=== PATIENT | female | born 1980 | race African-American/Black ===

== ENCOUNTER 2019-07-18 05:23 | Inpatient (IN) ==
[2019-07-18] MEDS ORDERED: Metoclopramide 10 MG/2 ML VIAL IVP PRN ×2 (05:34→13:36)
[2019-07-18] MEDS ORDERED: Naloxone 0.4 MG/ML INJ IVP PRN ×2 (05:34→13:36)
[2019-07-18] MEDS ORDERED: Famotidine 20 MG/2 ML VIAL IVP PRN (05:34)
[2019-07-18] MEDS ORDERED: Ringers Solution, Lactated 1,000 ML IVC SCH (05:45)
[2019-07-18 06:00] LABS: Basophils % 0.4 %; Eosinophils # 0.1 K/mcL (0.0-0.6); Eosinophils % 1.4 %; Hematocrit 35.1 % (35.3-44.9); Hemoglobin 11.2 g/dL (11.5-15.4); Immature Granulocytes % 0.7 % (0-4); Lymphocytes # 2.4 K/mcL (0.6-4.6); Lymphocytes % 32.9 %; Mean Corpuscular HGB Conc 31.9 g/dL (31.6-35.5); Mean Corpuscular Volume 78.3 fL (83.0-100.0); Mean Platelet Volume 10.3 fL (9.4-12.4); Monocytes # 0.8 K/mcL (0.0-1.3); Monocytes % 11.2 %; Neutrophils # 3.8 K/mcL (1.6-8.9); Platelet Count 252 K/mcL (140-400); Red Blood Count 4.48 M/mcL (3.82-4.97); Red Cell Distribution Width 15.6 % (11.5-14.5); Segmented Neutrophils % 53.4 %; White Blood Count 7.2 K/mcL (4.3-11.1)
[2019-07-18 06:21] LABS: Amphetamine Screen,Urine Negative ng/mL (Cutoff=1000); Barbiturate Screen,Urine Negative ng/mL (Cutoff=200)
[2019-07-18 06:22] LABS: Benzodiazepines Screen,Urine Negative ng/mL (Cutoff=300); Cannabinoid Screen,Urine Negative ng/mL (Cutoff = 50); Cocaine Screen,Urine Negative ng/mL (Cutoff= 300); Opiate Screen,Urine Negative ng/mL (Cutoff=300); Phencyclidine Screen,Urine Negative ng/mL (Cutoff=25)
[2019-07-18] MEDS ORDERED: *HR* OxyCODONE/APAP 5/325 TABLET PO PRN (06:32)
[2019-07-18] MEDS ORDERED: Ibuprofen 400 MG TABLET PO PRN (06:32)
[2019-07-18] MEDS ORDERED: Ondansetron 4 MG/2 ML VIAL IVP PRN ×2 (06:32→13:36)
[2019-07-18] MEDS ORDERED: Acetaminophen IV 1,000 MG/100 ML INFUS..BTL IVPB ONE ×2 (06:34→11:27)
[2019-07-18] MEDS ORDERED: CeFAZolin Premix DUPLEX 2,000 MG/50 ML BAG IVPB ONE (06:41)
[2019-07-18] MEDS ORDERED: *HR* Phenylephrine 10 MG/ML VIAL ONE (07:23)
[2019-07-18] MEDS ORDERED: Ringers Solution, Lactated 1,000 ML ONE ×2 (07:23→10:08)
[2019-07-18] MEDS ORDERED: *HR* Morphine Sulfate/PF 10 MG/10 ML AMPUL ONE (07:23)
[2019-07-18] MEDS ORDERED: *HR* Oxytocin 10 UNIT/ML VIAL IM ONE ×2 (07:23→10:09)
[2019-07-18] MEDS ORDERED: Lidocaine -MPF 2% 5 ML VIAL ONE ×2 (07:23→09:22)
[2019-07-18] MEDS ORDERED: *HR* FentaNYL (PF) 100 MCG/2 ML VIAL ONE (07:23)
[2019-07-18] MEDS ORDERED: D5% in Water 1,000 ML IVC PRN (13:36)
[2019-07-18] MEDS ORDERED: Acetaminophen 325 MG TABLET PO PRN (13:36)
[2019-07-18] MEDS ORDERED: *HR* Dextrose 50 % in Water (Syg) 50 ML SYRINGE IVP PRN (13:36)
[2019-07-18] MEDS ORDERED: Dextrose Gel 15 GM/37.5 ML TUBE PO PRN ×2 (13:36)
[2019-07-18] MEDS ORDERED: *HR* OxyCODONE Immed Rel 5 MG TABLET PO PRN (13:36)
[2019-07-18] MEDS ORDERED: Simethicone 80 MG TAB.CHEW PO PRN (13:36)
[2019-07-18] MEDS ORDERED: Sennosides 8.6 MG TABLET PO PRN (13:36)
[2019-07-18] MEDS: Insulin LISPRO 300 UNITS/3 ML VIAL SQ SCH ×4 (17:28→23:15)
[2019-07-18] MEDS: Oxytocin 20 units/ LR 1000 mL 20 UNIT/1,000 ML BAG IVC SCH (17:33)
[2019-07-18] MEDS: Ibuprofen 600 MG TABLET PO PRN (18:38)
[2019-07-18] MEDS: *HR* Metformin 500 MG TABLET PO SCH (20:21)
[2019-07-19] MEDS: Oxytocin 20 units/ LR 1000 mL 20 UNIT/1,000 ML BAG IVC SCH (01:52)
[2019-07-19] MEDS: *HR* Metformin 500 MG TABLET PO SCH ×2 (08:36→20:15)
[2019-07-19] MEDS: *HR* OxyCODONE/APAP 5/325 TABLET PO PRN ×4 (08:36→22:09)
[2019-07-19] MEDS: Insulin LISPRO 300 UNITS/3 ML VIAL SQ SCH ×3 (08:48→14:52)
[2019-07-19] MEDS: Prenatal Vit/FA 1 EACH TABLET PO SCH (08:48)
[2019-07-19] MEDS ORDERED: Benzonatate 100 MG CAPSULE PO PRN (18:49)
[2019-07-20] MEDS: *HR* OxyCODONE Immed Rel 5 MG TABLET PO PRN ×5 (01:34→19:00)
[2019-07-20] MEDS: Ibuprofen 600 MG TABLET PO PRN ×4 (01:39→21:19)
[2019-07-20] MEDS: *HR* OxyCODONE/APAP 5/325 TABLET PO PRN ×4 (05:42→19:00)
[2019-07-20] MEDS: *HR* Metformin 500 MG TABLET PO SCH ×2 (08:53→21:19)
[2019-07-20] MEDS: Prenatal Vit/FA 1 EACH TABLET PO SCH (08:53)
[2019-07-20] MEDS: Insulin LISPRO 300 UNITS/3 ML VIAL SQ SCH (18:46)
[2019-07-21] MEDS: Ibuprofen 600 MG TABLET PO PRN ×2 (02:59→09:05)
[2019-07-21 08:39] VITALS: BP 127/79
[2019-07-21] MEDS: *HR* Metformin 500 MG TABLET PO SCH (09:05)
[2019-07-21] MEDS: Prenatal Vit/FA 1 EACH TABLET PO SCH (09:05)
== END 2019-07-21 11:00 | disposition home or self-care (01) | DRG 788 ==
LOC: 1NENULAB 05:23 → 1NENUOBS 13:15
PROVIDERS: ADMIT Obstetrics & Gynecology; ATTEND Obstetrics & Gynecology